=== PATIENT | female | born 2000 | race Hispanic/Latino ===

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

== ENCOUNTER 2023-02-01 01:19 | Emergency (ER) | payer MEDICAID ==
[~2023-02-01] VITALS: Ht 172.7 cm; Wt 140.2 kg
[2023-02-01 01:21] VITALS: BP 149/77
== END 2023-02-01 03:42 | disposition left against medical advice (07) ==
LOC: EDH 01:19
DX: R50.9 Fever, unspecified (principal); M79.10 Myalgia, unspecified site; R11.0 Nausea; Z53.21 Procedure and treatment not carried out due to patient leaving prior to being seen by health care provider
CPT/HCPCS: 99281